=== PATIENT | female | born 1930 | race African-American/Black ===

== ENCOUNTER 2018-11-05 10:26 | Inpatient (IN) ==
[2018-11-05] MEDS ORDERED: ASPIRIN 325 MG TABLET PO STA (10:57)
[2018-11-05] MEDS ORDERED: KETOROLAC 30 MG/1 ML VIAL IV STA (10:57)
[2018-11-05] MEDS ORDERED: NITROGLYCERIN 2% OINT 1 INCH/GM PACK TOP STA (10:57)
[2018-11-05 12:51] LABS: Basophils % 0.5 % (0.0-0.8); Eosinophils # 0.2 10*3/uL (0.0-0.87); Eosinophils % 2.4 % (0.00-10.9); Hematocrit 26.6 VOL% (35.7-47.0); Hemoglobin 8.4 GM/DL (12.0-16.0); Immature Granulocytes % 0.4 %; Immature Granulocytes Absolute 0.03 #; Lymphocytes # 1.1 10*3/uL (1.4-4.0); Lymphocytes % 14.4 % (21.3-54.2); Mean Corpuscular HGB Conc 31.6 GM/DL (32-36); Mean Corpuscular Volume 89.3 FL (87-102); Mean Platelet Volume 10.6 FL (9.6-12.0); Monocytes % 4.5 % (1.7-12.7); Neutrophils % 77.8 % (38.7-73.9); Platelet Count 248 T/CUMM (130-400); Red Blood Count 2.98 MC/CUMM (3.8-5.5); Red Cell Distribution Width 15.4 % (9.3-17.3); White Blood Count 7.6 T/CUMM (4-12)
[2018-11-05 13:01] LABS: INR 0.9; Partial Thromboplastin Time 22.6 SECS (20.8-36.0)
[2018-11-05 13:22] LABS: Alanine Aminotransferase 11 U/L (13-56); Albumin 2.3 G/DL (3.4-5.0); Alkaline Phosphatase 65 U/L (45-117); Aspartate Amino Transferase 14 U/L (0-37); Bilirubin,Total < 0.39 MG/DL (0.2-1.0); Blood Urea Nitrogen 52 MG/DL (7-18); Calcium 8.4 MG/DL (8.5-10.1); Estimated Glom Filtration Rate 12 ML/MIN; Glucose 110 MG/DL (74-106); Osmolality,Calculated 300.8 MOS/KG (273-304); Total Protein 5.7 G/DL (6.4-8.3)
[2018-11-05] MEDS ORDERED: ACETAMINOPHEN 500 MG TABLET PO PRN (13:40)
[2018-11-05] MEDS ORDERED: ONDANSETRON 4 MG/2 ML VIAL IV PRN (13:40)
[2018-11-05] MEDS ORDERED: DICLOFENAC SODIUM 50 MG TABLET PO SCH (15:00)
[2018-11-05] MEDS: BACLOFEN 10 MG TABLET PO SCH ×2 (16:44→21:23)
[2018-11-05] MEDS: hydrALAZINE 25 MG TABLET PO SCH ×2 (16:44→21:24)
[2018-11-05] MEDS: ALBUTEROL/IPRATROPIUM 3 ML NEB RESP TX SCH (19:43)
[2018-11-05] MEDS ORDERED: ENALAPRIL 20 MG TABLET PO SCH (21:00)
[2018-11-05] MEDS: carvediloL 25 MG TABLET PO SCH (21:23)
[2018-11-05] MEDS: cloNIDine 0.1 MG TABLET PO SCH (21:23)
[2018-11-05] MEDS: ALLOPURINOL 100 MG TABLET PO SCH (21:24)
[2018-11-06] MEDS: ALBUTEROL/IPRATROPIUM 3 ML NEB RESP TX SCH ×4 (01:28→19:02)
[2018-11-06] MEDS: hydrALAZINE 20 MG/1 ML VIAL IV PRN (03:43)
[2018-11-06] MEDS ORDERED: SODIUM CHLORIDE 0.45% 1,000 ML IV SCH (08:00)
[2018-11-06] MEDS ORDERED: cloNIDine 0.2 MG/24 HR PATCH TRANSDERM SCH (09:00)
[2018-11-06] MEDS: cloNIDine 0.1 MG TABLET PO SCH ×2 (09:35→22:23)
[2018-11-06] MEDS: ATORVASTATIN 10 MG TABLET PO SCH (09:35)
[2018-11-06] MEDS: hydrALAZINE 25 MG TABLET PO SCH ×3 (09:35→22:23)
[2018-11-06] MEDS: PANTOPRAZOLE 40 MG TABLET PO SCH (09:35)
[2018-11-06] MEDS: BACLOFEN 10 MG TABLET PO SCH ×2 (09:35→16:29)
[2018-11-06] MEDS: carvediloL 25 MG TABLET PO SCH ×2 (09:43→22:23)
[2018-11-06] MEDS: amLODIPine 10 MG TABLET PO SCH (09:43)
[2018-11-06 09:44] LABS: Basophils % 0.3 % (0.0-0.8); Eosinophils % 0.4 % (0.00-10.9); Hematocrit 26.3 VOL% (35.7-47.0); Hemoglobin 8.4 GM/DL (12.0-16.0); Immature Granulocytes % 0.6 %; Immature Granulocytes Absolute 0.06 #; Lymphocytes # 0.8 10*3/uL (1.4-4.0); Lymphocytes % 8.1 % (21.3-54.2); Mean Corpuscular HGB Conc 31.9 GM/DL (32-36); Mean Corpuscular Volume 88.6 FL (87-102); Mean Platelet Volume 11.1 FL (9.6-12.0); Monocytes % 1.9 % (1.7-12.7); Neutrophils % 88.7 % (38.7-73.9); Platelet Count 262 T/CUMM (130-400); Red Blood Count 2.97 MC/CUMM (3.8-5.5); Red Cell Distribution Width 15.5 % (9.3-17.3); White Blood Count 9.7 T/CUMM (4-12)
[2018-11-06 10:09] LABS: Alanine Aminotransferase 11 U/L (13-56); Albumin 2.3 G/DL (3.4-5.0); Alkaline Phosphatase 70 U/L (45-117); Aspartate Amino Transferase 15 U/L (0-37); Bilirubin,Total < 0.39 MG/DL (0.2-1.0); Blood Urea Nitrogen 49 MG/DL (7-18); Calcium 8.3 MG/DL (8.5-10.1); Estimated Glom Filtration Rate 13 ML/MIN; Glucose 132 MG/DL (74-106); Osmolality,Calculated 302.7 MOS/KG (273-304)
[2018-11-06 10:12] LABS: Hematocrit 29.3 VOL% (35.7-47.0); Hemoglobin 9.4 GM/DL (12.0-16.0)
[2018-11-06] MEDS: cefTRIAXone 1,000 MG in SYRINGE 1 EACH IV SCH (18:37)
[2018-11-06] MEDS: SODIUM BICARB INJ 150 MEQ in DEXTROSE 5% 1,000 ML IV SCH (18:37)
[2018-11-06] MEDS: ALLOPURINOL 100 MG TABLET PO SCH (22:23)
[2018-11-06] MEDS: LORazepam 2 MG/1 ML VIAL IV PRN (22:57)
[2018-11-06 22:59] LABS: Hematocrit 28.7 VOL% (35.7-47.0); Hemoglobin 9.1 GM/DL (12.0-16.0)
[2018-11-07] MEDS: ALBUTEROL/IPRATROPIUM 3 ML NEB RESP TX SCH ×4 (00:06→20:52)
[2018-11-07 04:48] LABS: Basophils % 0.2 % (0.0-0.8); Hematocrit 26.4 VOL% (35.7-47.0); Hemoglobin 8.4 GM/DL (12.0-16.0); Immature Granulocytes % 0.5 %; Immature Granulocytes Absolute 0.07 #; Lymphocytes # 1.2 10*3/uL (1.4-4.0); Lymphocytes % 8.5 % (21.3-54.2); Mean Corpuscular HGB Conc 31.8 GM/DL (32-36); Mean Corpuscular Volume 88.3 FL (87-102); Mean Platelet Volume 10.8 FL (9.6-12.0); Monocytes % 4.5 % (1.7-12.7); Neutrophils % 86.3 % (38.7-73.9); Platelet Count 282 T/CUMM (130-400); Red Blood Count 2.99 MC/CUMM (3.8-5.5); Red Cell Distribution Width 15.5 % (9.3-17.3); White Blood Count 13.5 T/CUMM (4-12)
[2018-11-07 05:01] LABS: Calcium 8.5 MG/DL (8.5-10.1); Osmolality,Calculated 309.3 MOS/KG (273-304)
[2018-11-07 05:11] LABS: Thyroid Stimulating Hormone 3.25 uIU/ml (0.358-3.74)
[2018-11-07] MEDS: SODIUM BICARB INJ 150 MEQ in DEXTROSE 5% 1,000 ML IV SCH (05:43)
[2018-11-07] MEDS: DEXTROSE 5% 1,000 ML IV SCH ×2 (05:44)
[2018-11-07] MEDS: hydrALAZINE 20 MG/1 ML VIAL IV PRN ×3 (07:55→20:50)
[2018-11-07] MEDS ORDERED: POTASSIUM CHLORIDE INJ 20 MEQ in DEXTROSE 5% 1,000 ML IV SCH (08:15)
[2018-11-07] MEDS: amLODIPine 10 MG TABLET PO SCH (09:34)
[2018-11-07] MEDS: carvediloL 25 MG TABLET PO SCH ×2 (09:34→21:20)
[2018-11-07] MEDS: cloNIDine 0.1 MG TABLET PO SCH ×2 (09:34→21:20)
[2018-11-07] MEDS: hydrALAZINE 25 MG TABLET PO SCH ×3 (09:34→21:20)
[2018-11-07] MEDS: ATORVASTATIN 10 MG TABLET PO SCH (09:34)
[2018-11-07] MEDS: PANTOPRAZOLE 40 MG TABLET PO SCH (09:35)
[2018-11-07] MEDS ORDERED: niCARdipine INJ 25 MG in SODIUM CHLORIDE 0.9% 240 ML IV PRN (16:42)
[2018-11-07] MEDS ORDERED: cloNIDine 0.3 MG/24 HR PATCH TRANSDERM SCH (18:00)
[2018-11-07] MEDS: cefTRIAXone 1,000 MG in SYRINGE 1 EACH IV SCH (18:12)
[2018-11-07] MEDS ORDERED: DEXTROSE 5% KCL 20 MEQ 20 MEQ/1,000 ML BAG IV SCH (18:21)
[2018-11-07] MEDS: cefTRIAXone 2,000 MG in SYRINGE 1 EACH IV SCH (18:33)
[2018-11-07] MEDS: ALLOPURINOL 100 MG TABLET PO SCH (21:20)
[2018-11-07] MEDS: AMPICILLIN INJ 2,000 MG in SODIUM CHLORIDE 0.9% 100 ML IV SCH (21:52)
[2018-11-07] MEDS: ACYCLOVIR INJ 500 MG in SODIUM CHLORIDE 0.9% 100 ML IV SCH (22:24)
[2018-11-07 22:37] LABS: Apearance,Urine CLOUDY (Clear); Bacteria,Urine Few /HPF (Few); Bilirubin,Urine Negative (Negative); Blood, Urine Small mg/dL (Negative); Glucose,Urine (UA) 50 mg/dL (Negative); Ketones,Urine Negative (Negative); Mucus,Urine Occasional /LPF (Occasional); Nitrite,Urine Negative (Negative); Protein,Urine >=500 MG/DL; RBC,Urine 4 /HPF (0-4); Squamous Epithelial Cell,Urine Occasional /HPF (0-10); Urine Color Yellow (Yellow); Urine Specific Gravity 1.018 (1.001-1.035); Urine Urobilinogen < 2.0 EU/DL (0.2-1.0)
[2018-11-08] MEDS: NITROGLYCERIN 0.1 MG/HR PATCH TRANSDERM SCH ×2 (00:24→08:12)
[2018-11-08] MEDS: ALBUTEROL/IPRATROPIUM 3 ML NEB RESP TX SCH ×4 (00:30→21:00)
[2018-11-08] MEDS: AMPICILLIN INJ 2,000 MG in SODIUM CHLORIDE 0.9% 100 ML IV SCH ×4 (00:43→17:44)
[2018-11-08] MEDS: ACYCLOVIR INJ 500 MG in SODIUM CHLORIDE 0.9% 100 ML IV SCH ×3 (03:58→19:53)
[2018-11-08] MEDS: hydrALAZINE 20 MG/1 ML VIAL IV PRN ×2 (04:26→20:31)
[2018-11-08] MEDS: LORazepam 2 MG/1 ML VIAL IV PRN ×4 (04:57→21:25)
[2018-11-08 04:59] LABS: Basophils % 0.3 % (0.0-0.8); Eosinophils % 0.1 % (0.00-10.9); Hematocrit 28.6 VOL% (35.7-47.0); Hemoglobin 9.1 GM/DL (12.0-16.0); Immature Granulocytes % 1.1 %; Immature Granulocytes Absolute 0.18 #; Lymphocytes # 1.4 10*3/uL (1.4-4.0); Mean Corpuscular HGB Conc 31.8 GM/DL (32-36); Mean Corpuscular Volume 87.7 FL (87-102); Mean Platelet Volume 10.9 FL (9.6-12.0); Monocytes % 4.3 % (1.7-12.7); Neutrophils % 85.2 % (38.7-73.9); Platelet Count 316 T/CUMM (130-400); Red Blood Count 3.26 MC/CUMM (3.8-5.5); Red Cell Distribution Width 15.9 % (9.3-17.3); White Blood Count 15.9 T/CUMM (4-12)
[2018-11-08 05:18] LABS: Albumin 2.2 G/DL (3.4-5.0); Bilirubin,Total 0.4 MG/DL (0.2-1.0); Calcium 8.6 MG/DL (8.5-10.1); Osmolality,Calculated 305.4 MOS/KG (273-304); Total Protein 5.9 G/DL (6.4-8.3)
[2018-11-08] MEDS: cefTRIAXone 2,000 MG in SYRINGE 1 EACH IV SCH ×2 (05:50→17:44)
[2018-11-08] MEDS: LABETALOL 20 MG/4 ML SYRINGE IV ONE ×2 (07:57→09:26)
[2018-11-08] MEDS ORDERED: POTASSIUM CHLORIDE INJ 20 MEQ in DEXTROSE 5% NACL 0.45% 1,000 ML IV SCH (08:00)
[2018-11-08] MEDS: carvediloL 25 MG TABLET PO SCH ×2 (08:12→20:45)
[2018-11-08] MEDS: ATORVASTATIN 10 MG TABLET PO SCH (08:12)
[2018-11-08] MEDS: cloNIDine 0.1 MG TABLET PO SCH ×2 (08:12→20:45)
[2018-11-08] MEDS: PANTOPRAZOLE 40 MG TABLET PO SCH (08:12)
[2018-11-08] MEDS: hydrALAZINE 25 MG TABLET PO SCH ×3 (08:12→20:45)
[2018-11-08] MEDS: SODIUM BICARB IV SCH (08:47)
[2018-11-08] MEDS: POTASSIUM CHLORIDE RIDER 10 MEQ in PREMIX 1 EACH IV SCH ×2 (08:47→09:52)
[2018-11-08] MEDS: [UNRECOGNIZED DRUG - OTHER] IV SCH (08:47)
[2018-11-08] MEDS: POTASSIUM CHLORIDE IV SCH (08:47)
[2018-11-08 11:22] LABS: Glucose,CSF 86 MG/DL (40-70)
[2018-11-08 11:23] LABS: Lymphocytes,CSF 7 %; Monocytes,CSF 7 %; Neutrophils,CSF 86 %; Red Blood Cell,CSF 894 C/CUMM; White Blood Cell,CSF 27 C/CUMM
[2018-11-08 11:24] LABS: Appearance,CSF Clear
[2018-11-08] MEDS ORDERED: LABETALOL 20 MG/4 ML SYRINGE IV PRN (11:42)
[2018-11-08] MEDS: PANTOPRAZOLE 40 MG VIAL IV SCH (12:56)
[2018-11-08] MEDS: NITROGLYCERIN 0.4 MG/HR PATCH TRANSDERM SCH (20:30)
[2018-11-08] MEDS: ALLOPURINOL 100 MG TABLET PO SCH (20:46)
[2018-11-09] MEDS: ALBUTEROL/IPRATROPIUM 3 ML NEB RESP TX SCH ×4 (01:01→19:44)
[2018-11-09] MEDS: AMPICILLIN INJ 2,000 MG in SODIUM CHLORIDE 0.9% 100 ML IV SCH ×2 (01:13→05:35)
[2018-11-09] MEDS ORDERED: LORazepam 2 MG/1 ML VIAL ONE ×2 (02:12→23:41)
[2018-11-09] MEDS: hydrALAZINE 20 MG/1 ML VIAL IV PRN ×2 (02:25→21:06)
[2018-11-09] MEDS: LORazepam 2 MG/1 ML VIAL IV PRN ×3 (02:28→23:49)
[2018-11-09 04:01] LABS: Basophils % 0.1 % (0.0-0.8); Hematocrit 28.2 VOL% (35.7-47.0); Hemoglobin 8.9 GM/DL (12.0-16.0); Immature Granulocytes % 0.8 %; Immature Granulocytes Absolute 0.13 #; Lymphocytes # 0.9 10*3/uL (1.4-4.0); Lymphocytes % 5.2 % (21.3-54.2); Mean Corpuscular HGB Conc 31.6 GM/DL (32-36); Mean Platelet Volume 10.3 FL (9.6-12.0); Monocytes % 3.3 % (1.7-12.7); Neutrophils % 90.6 % (38.7-73.9); Platelet Count 299 T/CUMM (130-400); Red Blood Count 3.17 MC/CUMM (3.8-5.5); Red Cell Distribution Width 15.9 % (9.3-17.3); White Blood Count 17.2 T/CUMM (4-12)
[2018-11-09 04:07] LABS: Albumin 2.1 G/DL (3.4-5.0); Bilirubin,Total 0.4 MG/DL (0.2-1.0); Calcium 8.3 MG/DL (8.5-10.1); Total Protein 5.7 G/DL (6.4-8.3)
[2018-11-09 04:27] LABS: Lymphocytes 6 % (20-55); Segmented Neutrophils 90 % (50-85); Total Cells Counted 100
[2018-11-09 04:28] LABS: Burr Cells 1+; Hypochromasia 1+; Ovalocytes 1+; Platelet Estimate Normal
[2018-11-09] MEDS: [UNRECOGNIZED DRUG - OTHER] IV SCH (04:33)
[2018-11-09] MEDS: SODIUM BICARB IV SCH (04:33)
[2018-11-09] MEDS: POTASSIUM CHLORIDE IV SCH (04:33)
[2018-11-09] MEDS: ACYCLOVIR INJ 500 MG in SODIUM CHLORIDE 0.9% 100 ML IV SCH ×3 (05:36→21:08)
[2018-11-09] MEDS: cefTRIAXone 2,000 MG in SYRINGE 1 EACH IV SCH ×2 (06:38→17:03)
[2018-11-09 07:12] LABS: Sedimentation Rate-Westergren 67 MM/HR (0-30)
[2018-11-09] MEDS: hydrALAZINE 25 MG TABLET PO SCH ×3 (09:50→21:57)
[2018-11-09] MEDS: ATORVASTATIN 10 MG TABLET PO SCH (09:57)
[2018-11-09] MEDS: carvediloL 25 MG TABLET PO SCH ×2 (09:57→21:57)
[2018-11-09] MEDS: cloNIDine 0.1 MG TABLET PO SCH ×2 (09:57→21:57)
[2018-11-09] MEDS: PANTOPRAZOLE 40 MG VIAL IV SCH (10:02)
[2018-11-09] MEDS: NITROGLYCERIN 0.4 MG/HR PATCH TRANSDERM SCH (10:03)
[2018-11-09] MEDS ORDERED: VANCOMYCIN INJ 1,500 MG in SODIUM CHLORIDE 0.9% 500 ML IV ONE (11:00)
[2018-11-09] MEDS ORDERED: VANCOMYCIN INJ 1,250 MG in SODIUM CHLORIDE 0.9% 250 ML IV PRN (11:54)
[2018-11-10] MEDS: ALBUTEROL/IPRATROPIUM 3 ML NEB RESP TX SCH ×3 (01:55→13:00)
[2018-11-10] MEDS: ACYCLOVIR INJ 500 MG in SODIUM CHLORIDE 0.9% 100 ML IV SCH ×2 (04:03→16:30)
[2018-11-10 04:54] LABS: Basophils % 0.1 % (0.0-0.8); Hematocrit 24.9 VOL% (35.7-47.0); Hemoglobin 7.7 GM/DL (12.0-16.0); Immature Granulocytes % 0.8 %; Immature Granulocytes Absolute 0.13 #; Lymphocytes # 1.1 10*3/uL (1.4-4.0); Lymphocytes % 6.4 % (21.3-54.2); Mean Corpuscular HGB Conc 30.9 GM/DL (32-36); Mean Corpuscular Volume 90.2 FL (87-102); Monocytes % 5.3 % (1.7-12.7); NRBC # 0.02 10*3/uL; Neutrophils % 87.4 % (38.7-73.9); Platelet Count 279 T/CUMM (130-400); Red Blood Count 2.76 MC/CUMM (3.8-5.5); Red Cell Distribution Width 16.3 % (9.3-17.3); White Blood Count 16.8 T/CUMM (4-12)
[2018-11-10 05:23] LABS: Albumin 1.8 G/DL (3.4-5.0); Bilirubin,Total 0.8 MG/DL (0.2-1.0); Calcium 7.9 MG/DL (8.5-10.1); Osmolality,Calculated 321.6 MOS/KG (273-304); Total Protein 5.1 G/DL (6.4-8.3)
[2018-11-10] MEDS: cefTRIAXone 2,000 MG in SYRINGE 1 EACH IV SCH (05:38)
[2018-11-10] MEDS: POTASSIUM CHLORIDE IV SCH ×4 (07:10→16:30)
[2018-11-10] MEDS: SODIUM BICARB IV SCH ×4 (07:10→16:30)
[2018-11-10] MEDS: [UNRECOGNIZED DRUG - OTHER] IV SCH ×4 (07:10→16:30)
[2018-11-10 11:16] LABS: VDRL Spinal Fluid Negative (Negative)
[2018-11-10] MEDS ORDERED: methylPREDNISolone SOD SUC 125 MG/2 ML VIAL IV SCH (12:30)
[2018-11-10] MEDS: PANTOPRAZOLE 40 MG VIAL IV SCH (13:49)
[2018-11-10] MEDS: carvediloL 25 MG TABLET PO SCH (13:49)
[2018-11-10] MEDS: NITROGLYCERIN 0.4 MG/HR PATCH TRANSDERM SCH (13:49)
[2018-11-10] MEDS: ATORVASTATIN 10 MG TABLET PO SCH (13:49)
[2018-11-10] MEDS: cloNIDine 0.1 MG TABLET PO SCH (13:49)
[2018-11-10] MEDS: hydrALAZINE 25 MG TABLET PO SCH (13:49)
[2018-11-10] MEDS: LORazepam 2 MG/1 ML VIAL IV PRN (13:50)
[2018-11-10 15:58] VITALS: BP 130/55
[2018-11-11 11:31] LABS: M. Tuberculosis PCR Result Negative (Negative); M. Tuberculosis PCR Source CSF
[2018-11-13 12:11] LABS: West Nile Virus Ab, IgG, CSF Negative (Negative); West Nile Virus Ab, IgM, CSF Negative (Negative)
== END 2018-11-10 15:31 | disposition expired | DRG 682 ==
LOC: N.ED 10:26 → N.EDINP 13:38 → N.TELES 14:17
PROVIDERS: ADMIT Family Medicine; ATTEND Family Medicine